=== PATIENT | male | born 1965 | race Two or more races ===

== ENCOUNTER 2018-10-06 23:19 | Emergency (ER) | payer SELFPAY ==
[~2018-10-06] VITALS: Ht 175.3 cm; Wt 90.7 kg
[2018-10-06 23:24] VITALS: Ht 175.3 cm; Wt 90.7 kg
[2018-10-07 01:20] VITALS: BP 129/67
== END 2018-10-07 01:20 | disposition home or self-care (01) ==
LOC: ED 23:19
DX: S86.911A Strain of unspecified muscle(s) and tendon(s) at lower leg level, right leg, initial encounter (principal); X50.1XXA Overexertion from prolonged static or awkward postures, initial encounter; Y93.89 Activity, other specified; Y92.89 Other specified places as the place of occurrence of the external cause; Y99.8 Other external cause status
CPT/HCPCS: J1885; Q0092

== ENCOUNTER 2018-10-08 20:44 | Emergency (ER) | payer SELFPAY ==
[~2018-10-08] VITALS: Ht 175.3 cm; Wt 90.7 kg
[2018-10-08 20:46] VITALS: Ht 175.3 cm; Wt 90.7 kg
[2018-10-08 21:20] LABS: CALCIUM 8.8 mg/dL (8.5-10.1); CARBON DIOXIDE 29.1 mmol/L (21-32); CHLORIDE SERUM 102 mmol/L (98-107); CREATININE SERUM 0.8 mg/dL (0.7-1.3); GFR1 > 60 mL/min; GLUCOSE SERUM 100 mg/dL (74-106); POTASSIUM SERUM 3.9 mmol/L (3.5-5.1); SODIUM SERUM 137 mmol/L (136-145)
[2018-10-08 22:43] VITALS: BP 138/74
== END 2018-10-08 22:43 | disposition home or self-care (01) ==
LOC: ED 20:44
PROVIDERS: Emergency Medicine
DX: M79.605 Pain in left leg (principal); M79.604 Pain in right leg
CPT/HCPCS: J1885; Q0092